=== PATIENT | female | born 1995 | race Caucasian/White ===

== ENCOUNTER 2021-04-30 15:51 | Emergency (ER) | payer BC ==
[~2021-04-30] VITALS: Ht 170.2 cm; Wt 77.1 kg
[2021-04-30 15:53] VITALS: BP 122/59
[2021-04-30] MEDS ORDERED: RABIES VACC, HUMAN DIPLOID/PF 2.5 UNIT ML IM SCH (18:30)
[2021-04-30] MEDS ORDERED: DIPH,PERTUSS(ACELL),TET VAC/PF 0.5 ML VIAL IM ONE (18:30)
[2021-04-30] MEDS ORDERED: AMOX-426 PO (18:57)
[2021-04-30] MEDS ORDERED: MUPI15C TP (18:57)
== END 2021-04-30 20:17 | disposition home or self-care (01) ==
LOC: EDH 16:01
DX: S60.511A Abrasion of right hand, initial encounter (principal); W55.01XA Bitten by cat, initial encounter; Y93.89 Activity, other specified; Y92.89 Other specified places as the place of occurrence of the external cause; Y99.8 Other external cause status
CPT/HCPCS: 90471; 90472; 90675; 90715

== ENCOUNTER 2022-11-05 06:53 | Day surgery (SDC) | payer BC ==
[2022-11-04 09:17] VITALS: BP 121/69
[~2022-11-05] VITALS: Ht 170.2 cm; Wt 85.3 kg
[2022-11-05] VITALS (16 sets, daily range): BP systolic 101–114; BP diastolic 43–69
[~2022-11-05 06:53] MED LIST: 0.9% NACL 500ML IV.SOLN 500 ML IV SCH; MAGNESIUM CARBONATE PO; STRONG IODINE SOLN 14ML BOTTLE ONE; TUMERIC PO; VITC PO; [UNRECOGNIZED DRUG - OTHER] PO; [UNRECOGNIZED DRUG - OTHER] PO; [UNRECOGNIZED DRUG - OTHER] PO
[2022-11-05] MEDS ORDERED: LACTATED RINGERS 1000ML 1,000 ML IV ONE (07:08)
[2022-11-05] MEDS ORDERED: FERRIC SUBSULFATE ML TP SCH (08:30)
[2022-11-05] MEDS ORDERED: MIDAZOLAM HCL 1 MG/ML 2ML VIAL ONE (09:18)
[2022-11-05] MEDS ORDERED: FENTANYL CITRATE PF 50 MCG/1 ML 2ML VIAL ONE (09:20)
[2022-11-05] MEDS ORDERED: LIDOCAINE PF 100MG/5ML (2%) SYRINGE 5ML ONE (09:21)
[2022-11-05] MEDS ORDERED: GLYCOPYRROLATE 1 MG/5 ML SYRINGE ONE (09:21)
[2022-11-05] MEDS ORDERED: ROCURONIUM 10MG/1ML SYR 10 MG/ML ML ONE (09:22)
[2022-11-05] MEDS ORDERED: PROPOFOL 10 MG/ML 20ML VIAL IV ONE (09:22)
[2022-11-05] MEDS ORDERED: ONDANSETRON 4MG INJ ONE (09:32)
[2022-11-05] MEDS ORDERED: LIDOCAINE 1%-EPI 1:100,000 20 ML VIAL IJ ONE (10:00)
[2022-11-05] MEDS ORDERED: NEOSTIGMINE 5MG/5ML SYR IV ONE (10:19)
[2022-11-05] MEDS ORDERED: LIDOCAINE 1%-EPI 1:100,000 20 ML VIAL IJ SCH (10:30)
[2022-11-05] MEDS ORDERED: MEPERIDINE-PF 25 MG/ML SYG ONE (10:51)
== END 2022-11-05 12:15 | disposition home or self-care (01) ==
LOC: DAH 06:53
PROVIDERS: ATTEND Obstetrics & Gynecology
DX: N87.1 Moderate cervical dysplasia (principal); Z20.822 Contact with and (suspected) exposure to COVID-19; K21.9 Gastro-esophageal reflux disease without esophagitis; F41.9 Anxiety disorder, unspecified; F32.A Depression, unspecified; Z82.49 Family history of ischemic heart disease and other diseases of the circulatory system; Z83.3 Family history of diabetes mellitus; Z98.890 Other specified postprocedural states; Z79.899 Other long term (current) drug therapy; Z79.01 Long term (current) use of anticoagulants
CPT/HCPCS: 84703; 87426; 36415; 57520; 81025; A4351; J7120; J3010; J3490 ×3; J2710; J2001; J2250; J2704; J2405; J2175; A4215; A4223; A4222; A4221; A4663

== ENCOUNTER 2023-05-10 18:38 | Emergency (ER) | payer BC ==
[~2023-05-10] VITALS: Ht 170.2 cm; Wt 102.1 kg
[~2023-05-10 18:38] MED LIST changes: -0.9% NACL 500ML IV.SOLN 500 ML IV SCH; -STRONG IODINE SOLN 14ML BOTTLE ONE
[2023-05-10 19:30] LABS: BASOPHILS % (AUTO) 0.5 % (0.0-5.0); EOSINOPHILS % (AUTO) 1.5 % (0.0-8.0); HEMATOCRIT 34.5 % (36-48); LYMPHOCYTES % (AUTO) 22.8 % (21.0-51.0); MEAN CORPUSCULAR HEMOGLOBIN 28.6 pg (27.0-33.0); MEAN CORPUSCULAR VOLUME 86.5 fL (79-99); MONOCYTES % (AUTO) 4.7 % (3.0-13.0); NEUTROPHILS % (AUTO) 69.9 % (40.0-77.0); PLATELET COUNT (AUTO) 248 K/uL (130-400); RED BLOOD CELL COUNT(AUTO) 3.99 MIL/uL (4.00-5.50); RED CELL DISTRIBUTION WIDTH 12.5 % (11.0-15.5); WHITE BLOOD COUNT (AUTO) 10.8 K/uL (4.8-10.8)
[2023-05-10 19:32] LABS: APPEARANCE,URINE CLEAR (CLEAR); BILIRUBIN,URINE NEGATIVE (NEGATIVE); COLOR,URINE LIGHT-YELLOW (YELLOW); GLUCOSE, URINE (UA) NEGATIVE (NEGATIVE); KETONES,URINE NEGATIVE (NEGATIVE); LEUKOCYTE ESTERASE ,URINE NEGATIVE Leu/uL (NEGATIVE); NITRATE,URINE NEGATIVE (NEGATIVE); OCCULT BLOOD,URINE LARGE (NEGATIVE); PROTEIN,URINE 20 mg/dL (NEGATIVE); UROBILINOGEN,URINE 0.2 mg/dL (0.2-1.0)
[2023-05-10 19:36] LABS: HCG,QUALITATIVE URINE POSITIVE (NEGATIVE)
[2023-05-10 19:38] LABS: BACTERIA,URINE RARE /HPF (None Seen); CREATININE 0.8 mg/dL (0.5-1.5); MUCUS,URINE RARE LPF (None Seen); OTHER CASTS, URINE 1 /LPF (None Seen); POTASSIUM 3.7 mmol/L (3.5-5.1); SQUAMOUS EPITHELIAL CELL,UR RARE /HPF (0-2)
[2023-05-10 19:45] LABS: ALBUMIN 3.6 g/dL (3.5-5.0); TOTAL PROTEIN, SERUM 7.1 g/dL (6.0-8.3)
[2023-05-10 22:38] VITALS: BP 125/71
== END 2023-05-10 22:44 | disposition home or self-care (01) ==
LOC: EDH 18:38
DX: O20.0 Threatened abortion (principal); Z3A.08 8 weeks gestation of pregnancy
CPT/HCPCS: 36415; 76801; 80053; 81001; 81025; 84702; 85025; 86900; 86901; 87088

== ENCOUNTER 2024-09-26 22:31 | Inpatient (IN) | payer BC ==
[~2024-09-26] VITALS: Ht 170.2 cm; Wt 115.2 kg
[2024-09-26 22:32] VITALS: BP 175/99; PULSE 74; RESP 20; TEMP 97.9
--- NOTE | 2024-09-26 22:40 | NUR ---
REPORT GIVEN TO JAN AT [facility] PT IN STABLE CONDITION FOR TRANSPORT TO UNIT.
[2024-09-26 23:17] LABS: ADD UA MICROSCOPIC YES; APPEARANCE,URINE CLEAR (CLEAR); BILIRUBIN,URINE NEGATIVE (NEGATIVE); COLOR,URINE LIGHT-YELLOW (YELLOW); GLUCOSE, URINE (UA) NEGATIVE (NEGATIVE); KETONES,URINE NEGATIVE (NEGATIVE); LEUKOCYTE ESTERASE ,URINE NEGATIVE Leu/uL (NEGATIVE); NITRATE,URINE NEGATIVE (NEGATIVE); OCCULT BLOOD,URINE NEGATIVE (NEGATIVE); PROTEIN,URINE 10 mg/dL (NEGATIVE); UROBILINOGEN,URINE 0.2 mg/dL (0.2-1.0)
[2024-09-26 23:18] LABS: BASOPHILS # (AUTO) 0.04 K/uL (0.00-0.20); BASOPHILS % (AUTO) 0.4 % (0.0-5.0); EOSINOPHILS % (AUTO) 1.8 % (0.0-8.0); HEMATOCRIT 34.7 % (36-48); IMMATURE GRANULOCYTE ABSOLUTE 0.07 K/uL (0-1); LYMPHOCYTES # (AUTO) 2.3 K/uL (1.0-4.8); LYMPHOCYTES % (AUTO) 21.3 % (21.0-51.0); MEAN CORPUSCULAR HEMOGLOBIN 29.8 pg (27.0-33.0); MEAN CORPUSCULAR HGB CONC 33.4 g/dL (32.0-36.0); MEAN CORPUSCULAR VOLUME 89.2 fL (79-99); MONOCYTES # (AUTO) 0.5 K/uL (0.1-1.0); MONOCYTES % (AUTO) 4.7 % (3.0-13.0); NEUTROPHILS # (AUTO) 7.8 K/uL (1.8-7.7); NEUTROPHILS % (AUTO) 71.2 % (40.0-77.0); PLATELET COUNT (AUTO) 192 K/uL (130-400); RED BLOOD CELL COUNT(AUTO) 3.89 MIL/uL (4.00-5.50); RED CELL DISTRIBUTION WIDTH 13.5 % (11.0-15.5)
[2024-09-26 23:19] LABS: BACTERIA,URINE RARE /HPF (None Seen); MUCUS,URINE RARE LPF (None Seen); RBC,URINE 0-1 /HPF (0-1); SQUAMOUS EPITHELIAL CELL,UR RARE /HPF (0-2); WBC,URINE 0-1 /HPF (0-1)
[2024-09-26 23:24] LABS: AMPHET/METH SCREEN,URINE NEGATIVE (NEGATIVE); BARBITURATE SCREEN, URINE NEGATIVE (NEGATIVE); BENZODIAZEPINES SCREEN,URINE NEGATIVE (NEGATIVE); CANNABINOID SCREEN,URINE NEGATIVE (NEGATIVE); COCAINE SCREEN,URINE NEGATIVE (NEGATIVE); OPIATE SCREEN,URINE NEGATIVE (NEGATIVE); PHENCYCLIDINE SCREEN,URINE NEGATIVE (NEGATIVE)
[2024-09-26 23:29] LABS: INR <= 0.93 (0.85-1.15); PROTHROMBIN TIME 9.9 SEC (9.6-11.6)
[2024-09-26] MEDS ORDERED: LAbetaLOL 20MG VIAL ONE (23:29)
[2024-09-26 23:30] LABS: PARTIAL THROMBOPLASTIN TIME 26.1 SEC (26.3-35.5)
[2024-09-26 23:32] LABS: CREATININE 0.7 mg/dL (0.5-1.0); POTASSIUM 4.2 mmol/L (3.5-5.1)
[2024-09-26 23:34] LABS: FIBRINOGEN 436 mg/dL (180-350)
[2024-09-26 23:36] LABS: ALBUMIN 2.5 g/dL (3.5-5.0); BILIRUBIN,TOTAL 0.3 mg/dL (0.2-1.0); TOTAL PROTEIN, SERUM 6.3 g/dL (6.0-8.3); URIC ACID 5.8 mg/dL (2.6-7.2)
[2024-09-26] MEDS ORDERED: MAGNESIUM SULFATE 40 GM/1000 ML IV ONE (23:57)
[2024-09-27] MEDS ORDERED: CALCIUM GLUC 1GM/10ML VIAL IV PRN
[2024-09-27] MEDS ORDERED: MAGNESIUM 4GM PREMIX 100ML 100 ML IV PRN
[2024-09-27] MEDS ORDERED: MAGNESIUM SULFATE 40GM/1000ML 1,000 ML IV PRN
[2024-09-27] MEDS ORDERED: LACTATED RINGERS 1000ML 1,000 ML IV SCH
[2024-09-27] MEDS: MAGNESIUM 4GM PREMIX 100ML 100 ML IV ONE (00:01)
[2024-09-27] MEDS ORDERED: acetaMINOPHEN 500 MG TABLET PO PRN (00:30)
[2024-09-27] MEDS ORDERED: LAbetaLOL 20MG VIAL IV PRN (00:30)
[2024-09-27 00:57] LABS: HIV 1&2 ANTIBODY Non-Reactive (Negative)
[2024-09-27 00:58] LABS: HIV-1 p24 Antigen Non-Reactive (Negative)
[2024-09-27 17:39] LABS: RAPID PLASMA REAGIN NONREACTIVE (NONREACTIVE)
== END 2024-09-27 01:00 | disposition left against medical advice (07) | DRG 833 ==
LOC: EDH 22:31 → OBSVTOIN 22:32 → LDH 22:32
PROVIDERS: ADMIT Obstetrics & Gynecology; ATTEND Obstetrics & Gynecology
DX: O26.892 Other specified pregnancy related conditions, second trimester (principal); Z3A.20 20 weeks gestation of pregnancy
CPT/HCPCS: 36415; 80053; 80305; 81001; 84550; 85025; 85384; 85610; 85730; 86592; 86701; 86850; 86900; 86901; 87340; 87390; 96360; G0378; J3475; J3490

== ENCOUNTER 2024-09-30 21:29 | Observation (INO) | payer BC ==
[~2024-09-30] VITALS: Ht 170.2 cm; Wt 107.0 kg
[2024-09-30 21:54] LABS: BASOPHILS # (AUTO) 0.05 K/uL (0.00-0.20); BASOPHILS % (AUTO) 0.4 % (0.0-5.0); EOSINOPHILS # (AUTO) 0.35 K/uL (0.00-0.70); EOSINOPHILS % (AUTO) 2.9 % (0.0-8.0); HEMATOCRIT 28.3 % (36-48); IMMATURE GRANULOCYTE ABSOLUTE 0.08 K/uL (0-1); LYMPHOCYTES # (AUTO) 1.9 K/uL (1.0-4.8); LYMPHOCYTES % (AUTO) 15.6 % (21.0-51.0); MEAN CORPUSCULAR HEMOGLOBIN 29.4 pg (27.0-33.0); MEAN CORPUSCULAR HGB CONC 33.9 g/dL (32.0-36.0); MEAN CORPUSCULAR VOLUME 86.8 fL (79-99); MONOCYTES # (AUTO) 0.6 K/uL (0.1-1.0); MONOCYTES % (AUTO) 5.3 % (3.0-13.0); NEUTROPHILS # (AUTO) 9.1 K/uL (1.8-7.7); NEUTROPHILS % (AUTO) 75.1 % (40.0-77.0); PLATELET COUNT (AUTO) 160 K/uL (130-400); RED BLOOD CELL COUNT(AUTO) 3.26 MIL/uL (4.00-5.50); RED CELL DISTRIBUTION WIDTH 13.7 % (11.0-15.5); WHITE BLOOD COUNT (AUTO) 12.1 K/uL (4.8-10.8)
[2024-09-30 22:04] LABS: CREATININE 0.7 mg/dL (0.5-1.0)
[2024-09-30 22:07] LABS: INR <= 0.93 (0.85-1.15); PROTHROMBIN TIME 9.8 SEC (9.6-11.6)
[2024-09-30 22:08] LABS: PARTIAL THROMBOPLASTIN TIME 27.3 SEC (26.3-35.5)
[2024-09-30 22:15] LABS: B-TYPE NATRIURETIC PEPTIDE 84 pg/mL (0-100)
--- NOTE | 2024-09-30 22:35 | ERN ---
ED Note History of Present Illness Stated Complaint: SOB,HIGH BP,SWOLLEN FEET/LEGS,PREECLAMPSIA Chief Complaint: Post-Op Problem Time Seen by MD: 21:41 Dictation: History of present illness: 29-year-old female who had underwent section at 35 weeks of gestation on September 27, 2024 possibly due to preeclampsia presented to ED with complaints of sudden onset of shortness of breaths since today afternoon. As per the patient she had uneventful but developed headache and increased BP on September 26, which was why she was induced-failed induction- had a section. She also noticed increase in bilateral lower extremity swelling for past 1 day. She also reports chest tightness and silver spots in front of eyes. No nausea, no headache, no vom iting, no chest pain, no abdominal tenderness, no stitch site tenderness reported. Patient denies any signs and symptoms of depression although she acknowledges she is anxious about being a new mother. She also denies any increase in lochia. At the time of presentation to ER, her temperature was 99.2, blood pressure was 180/111, pulse rate was 84 per minute, SpO2 of 100% on room air. Allergies: Coded Allergies: No Known Allergies (Unverified Allergy, Unknown, 04/30/21) Home Meds Reported Medications [Magnesium Carbonate] No Conflict Check, 580 MG PO HS PRN for SLEEP 11/04/22 [Black Elderber] 2000MG No Conflict Check, 2 TAB PO DAILY 11/04/22 [Tumeric/Vitc/Black] No Conflict Check, 2 TAB PO DAILY 11/04/22 [Bloodbuilder Megafoo] No Conflict Check, 1 TAB PO DAILY 11/04/22 Past Medical History Past Medical History: No Pertinent History Surgical History: Family History: Negative Social History: Negative : 2 Para: 1 Aborts: 1 RN Note Reviewed/Agreed w/PFSH: Yes Review of System Dictation REVIEW OF SYSTEMS COMPLAINS OF CHEST TIGHTNESS, SHORTNESS OF BREATH, BILATERAL LOWER EXTREMITY SWELLING CONSTITUTIONAL: DENIES FEVERS, CHILLS, OR NIGHT SWEATS. NO UNINTENTIONAL WEIGHT LOSS REPORTED. ENT: NO HEARING LOSS, OTALGIA, OTORRHEA, RHINITIS, RHINORRHEA, HOARSENESS, OR SORE THROAT. CARDIOVASCULAR: DENIES ANY EXERTIONAL ANGINA, DYSPNEA ON EXERTION, ORTHOPNEA, PAROXYSMAL NOCTURNAL DYSPNEA, PALPITATIONS CLAUDICATION. PULMONARY: DENIES ANY SHORTNESS OF BREATH, COUGH, PHLEGM / SPUTUM, HEMOPTYSIS, PLEURITIC CHEST PAIN. SLEEP: DENIES MORNING HEADACHES, DAYTIME SOMNOLENCE OR NAPPING. DENIES DIFFICULTY FALLING ASLEEP, STAYING ASLEEP, WAKING FROM SLEEP. DENIES KNOWLEDGE OF SNORING. GASTROINTESTINAL: DENIES ANY TYPE OF DYSPHAGIA TO EITHER LIQUIDS OR SOLIDS. DENIES NAUSEA, VOMITING, ABDOMINAL PAIN, DIARRHEA, CONSTIPATION, BLOOD IN STOOLS . NEUROLOGICAL: DENIES HEADACHE, MOTOR WEAKNESS, SENSORY DEFICIT, VERTIGO / SPINNING SENSATION, GAIT ABNORMALITIES, OR TREMORS. GENITOURINARY: DENIES FREQUENCY, URGENCY, NOCTURIA, HEMATURIA OR INCONTINENCE, LOW URINARY STREAM, STRAINING TO VOID, URINARY INTERMITTENCY OR HESITANCY ENDOCRINOLOGY: DENIES POLYURIA, POLYDIPSIA, POLYPHAGIA OR HEAT / COLD INTOLERANCE. HEMATOLOGY: DENIES THROMBOPHILIA / PREVIOUS CLOTS, OR COAGULOPATHY / BLEEDING DISORDERS. ONCOLOGIC: DENIES PERSONAL HISTORY OF MALIGNANCY. DERMATOLOGIC: DENIES RASHES OR PRURITUS. PSYCHIATRIC: DENIES ANY SUICIDAL OR HOMICIDAL IDEATION. DENIES HALLUCINATIONS. Initial Vital Sign VS Vital Signs Date Time Temp Pulse Resp B/P (MAP) Pulse Ox O2 Delivery O2 Flow Rate FiO2 09/30/24 21:30 99.1 84 16 189/102 99 Room Air 09/30/24 22:19 0 21 Physical Exam Dictation PHYSICAL EXAM GENERAL APPEARANCE: Obese . Awake and alert. Oriented to time, place and person. No acute cardiopulmonary distress. HEENT: Head normocephalic , atraumatic. Sclera anicteric . Pupils are round and reactive. Extraocular movements intact . No conjunctival injection. No nasal congestion. No throat congestion .Oral mucosa moist. NECK: Supple. No JVD. No thyromegaly. No submental, submandibular, pre- /postauricular, occipital or supraclavicular lymphadenopathy. No carotid bruits. LUNGS: Scattered crackles CARDIOVASCULAR: Regular rate and rhythm. S1 and S2 normal. No rubs, murmurs or gallops. ABDOMEN: Soft, nontender, and nondistended. There is no rebound tenderness, voluntary guarding, or rigidity. No hepatosplenomegaly. Bowel sounds normal in all four quadrants . Healthy caesarian section stitch wound. NEUROLOGICAL: Cranial nerves II-XII grossly intact. Motor is 5/5 in bilateral upper and lower extremities . No sensory deficits. EXTREMITIES: Bilateral lower extremity edema, No cyanosis , No clubbing. Good capillary refill. SKIN: No skin breakdown. No rashes or lesions . PSYCHIATRY: Normal affect .No auditory or visual hallucinations. Normal speech. No dysarthria. Results (Laboratory/Radiology) Laboratory/Radiology Laboratory Tests Test 09/30/24 21:47 09/30/24 22:07 09/30/24 23:32 White Blood Count 12.1 K/uL (4.8-10.8) H Red Blood Count 3.26 MIL/uL (4.00-5.50) L Hemoglobin 9.6 g/dL (12.0-16.0) L Hematocrit 28.3 % (36-48) L Mean Corpuscular Volume 86.8 fL (79-99) Mean Corpuscular Hemoglobin 29.4 pg (27.0-33.0) Mean Corpuscular Hemoglobin Concent 33.9 g/dL (32.0-36.0) Red Cell Distribution Width 13.7 % (11.0-15.5) Platelet Count 160 K/uL (130-400) Mean Platelet Volume 12.1 fL (7.5-10.5) H Immature Granulocyte % (Auto) 0.7 % (0-1) Neutrophils (%) (Auto) 75.1 % (40.0-77.0) Lymphocytes (%) (Auto) 15.6 % (21.0-51.0) L Monocytes (%) (Auto) 5.3 % (3.0-13.0) Eosinophils (%) (Auto) 2.9 % (0.0-8.0) Basophils (%) (Auto) 0.4 % (0.0-5.0) Neutrophils # (Auto) 9.1 K/uL (1.8-7.7) H Lymphocytes # (Auto) 1.9 K/uL (1.0-4.8) Monocytes # (Auto) 0.6 K/uL (0.1-1.0) Eosinophils # (Auto) 0.35 K/uL (0.00-0.70) Basophils # (Auto) 0.05 K/uL (0.00-0.20) Absolute Immature Granulocyte (auto 0.08 K/uL (0-1) Nucleated Red Blood Cells 0.0 % (0.0-0.19) Prothrombin Time 9.8 SEC (9.6-11.6) Prothromb Time International Ratio <= 0.93 (0.85-1.15) Activated Partial Thromboplast Time 27.3 SEC (26.3-35.5) Sodium Level 136 mmol/L (136-145) Potassium Level 4.0 mmol/L (3.5-5.1) Chloride Level 102 mmol/L (101-111) Carbon Dioxide Level 27 mmol/L (21-32) Blood Urea Nitrogen 11 mg/dL (7-18) Creatinine 0.7 mg/dL (0.5-1.0) Glomerular Filtration Rate Calc 119 mL/min (>90) Random Glucose 87 mg/dL (70-105) Total Calcium 8.7 mg/dL (8.5-10.1) Total Creatine Kinase 86 U/L (21-232) Troponin I High Sensitivity 10 ng/L (4-50) B-Type Natriuretic Peptide 84 pg/mL (0-100) Troponin I < 0.05 ng/mL (0.00-0.05) Urine Color YELLOW (YELLOW) Urine Appearance CLEAR (CLEAR) Urine pH 6.0 (5.0-8.0) Urine Specific [place] 1.008 (1.001-1.031) Urine Protein NEGATIVE mg/dL (NEGATIVE) Urine Glucose (UA) NEGATIVE mg/dL (NEGATIVE) Urine Ketones NEGATIVE mg/dL (NEGATIVE) Urine Occult Blood MODERATE (NEGATIVE) H Urine Nitrate NEGATIVE (NEGATIVE) Urine Bilirubin NEGATIVE mg/dL (NEGATIVE) Urine Urobilinogen 0.2 mg/dL (0.2-1.0) Urine Leukocyte Esterase NEGATIVE [place]/uL Urine RBC 6-10 /HPF (0-1) H Urine WBC 2-5 /HPF (0-1) H Urine Squamous Epithelial Cells RARE /HPF (0-2) Urine Bacteria None /HPF (None Seen) Labs Reviewed?: Yes ED Course ED Course Orders Procedure Category Date Status Time Vital Signs Per CPOE 09/30/24 Transmitted Routine 21:40 B-Type Natriuretic LAB 09/30/24 Complete Peptide 21:40 Chest 1vw RAD 09/30/24 Resulted 21:40 12 Lead Ekg Tracing- EKG 09/30/24 Logged Technical 21:40 Oxygen By Nc/Pulse Ox CPOE 09/30/24 Transmitted 21:40 Maintain Iv CPOE 09/30/24 Transmitted 21:40 Iv Insertion CPOE 09/30/24 Transmitted 21:40 Cardiac Monitoring CPOE 09/30/24 Transmitted 21:40 Pulse Oximetry With CPOE 09/30/24 Transmitted Vs And Prn 21:40 Cbc With Differential LAB 09/30/24 Complete 21:40 Activity: Br W/Brp CPOE 09/30/24 Transmitted With Assist 21:40 Creatine Kinase, Total LAB 09/30/24 Complete 21:40 Urinalysis Profile LAB 09/30/24 Complete 21:40 Troponin Poc Order LAB 09/30/24 Complete Only 21:40 Bedside Troponin-I LAB.ER 09/30/24 In Process (Poc) 21:40 Basic Metabolic Panel LAB 09/30/24 Complete 21:40 Pt And Ptt LAB 09/30/24 Complete 21:40 Troponin I High LAB 09/30/24 Complete Sensitivity 21:40 Hydralazine 20mg Inj PHA 09/30/24 Complete (Apresoline 20mg In 22:00 Furosemide 20mg Vial PHA 10/01/24 Complete (Lasix 20mg Vial) 00:30 Current Medications Medications (Trade) Dose Ordered Sig/Fartun Route PRN Reason Start Time Stop Time Status Last Admin Dose Admin Furosemide (LASix 20MG VIAL) 20 mg ONCE ONCE IV 10/01/24 00:30 10/01/24 00:31 DC 10/01/24 00:31 Hydralazine HCl (APRESOLine 20MG INJ) 20 mg ONCE ONCE IV 09/30/24 22:00 09/30/24 22:01 DC 09/30/24 23:21 Vital Signs Date Time Temp Pulse Resp B/P (MAP) Pulse Ox O2 Delivery O2 Flow Rate FiO2 10/01/24 00:25 92 16 149/89 98 Room Air* 0 09/30/24 23:19 88 16 152/88 98 Room Air* 0 09/30/24 22:19 71 16 164/86 98 Room Air* 0 09/30/24 21:30 99.1 84 16 189/102 99 Room Air We will perform diagnostic labs, imaging and administer medications according to the patient's complaint. Once the results are available, will review and personally interpreted the labs to rule out any acute life-threatening emergency the trach require immediate intervention and treatment. I will then re-evaluate the patient after treatment and diagnostic exams have return to determine whether the patient requires any further testing, can safely be discharged home or need further admission to hospital for additional treatment and evaluation. Labs reviewed BNP 7 is within normal limits CBC showed a hemoglobin of 9.6 chest x-ray was unremarkable for any acute infiltrates. Antihypertensives were used and she responded very well blood pressure improved significantly to 149/89. She has been observed in the ER for more than 4 hours . 1:39 a.m.-clinically improved feels better. She is medically cleared from my standpoint to be evaluated by Ob team HEART Score Response (Comments) Value History: Low suspicion (0) 0 EKG: Normal 0 Age: < 45yrs (0) 0 Risk Factors: No known risk factors (0) 0 Initial Troponin: Normal limit (0) 0 HEART Score Risk: Low Risk for MACE (1-3) Total 0 Medical Decision Making MDM Differential diagnosis : Anxiety, acute pulmonary edema, cardiomyopathy, atelectasis, pulmonary embolus Rationale: Tests considered and ordered secondary to shared decision making include: I will re-evaluate the patient after treatment and diagnostic exams have returned to determine whether they require further testing, can be safely discharged home, or need admission for further treatment and evaluation. Given the social determinants of health affecting care, including literacy, access to medical care, prescription drug management, and [id number] drugs, I will ensure that treatment plans are tailored accordingly. There are no social concerns with this patient. Risk of complication and/or morbidity or mortality of patient management: None Need for hospitalization: Patient does not meet criteria for hospitalization. Need for emergency major/minor surgery: No Prescription drug management Prescriptions will include symptomatic care Medications-Per medication reconciliation Previous outside records reviewed: Old ER visits. Patient's prior external medical records from other ER visits were reviewed by me as indicated. Prior testing and results from previous visits were reviewed. Prior tests were taken into account with medical decision making and resource utilization, independent historian/historians were used to obtain complete medical history. I independently interpreted the test that were performed, results were reviewed by me and considered findings on radiology. Medical management and examination interpretation discussions was done by me with other qualified healthcare professionals as indicated for the patient's care. Revaluation: Her blood pressure dropped to 152/88 mmHg after 10 mg of IV hydralazine. Her vitals are stable. Her labs showed WBC [id number] , hemoglobin 9.6, normal BNP, normal bmp, normal troponins and normal EKG. Disposition : Discharge home to follow-up with [facility] Problem List Problem List: (1) eclampsia (2) Hypertensive emergency (3) Volume overload (4) anemia DX & DISP Disposition: Transfer Departure Impression: Primary Impression: eclampsia Additional Impressions: Hypertensive emergency without congestive heart failure, Volume overload Condition: Stable Additional Instructions: Patient is medically cleared for transfer to OB services for care Referrals: BRANDON GROVER MD (PCP) ATTESTATION BY PHYSICIAN I have seen and examined the patient. I reviewed the documentation, medical decision making, and treatment plan as noted by the resident provider above. I agree with the findings and plan of care. CONCHA KAHN MD, ANCHU A MD Sep 30, 2024 22:35 CONCHA KAHN MD Oct 01, 2024 01:43
[2024-09-30] MEDS: hydrALAZine 20MG/ML VIAL IV ONE (23:21)
[2024-09-30 23:41] LABS: APPEARANCE,URINE CLEAR (CLEAR); BILIRUBIN,URINE NEGATIVE (NEGATIVE); GLUCOSE, URINE (UA) NEGATIVE (NEGATIVE); KETONES,URINE NEGATIVE (NEGATIVE); LEUKOCYTE ESTERASE ,URINE NEGATIVE Leu/uL (NEGATIVE); NITRATE,URINE NEGATIVE (NEGATIVE); OCCULT BLOOD,URINE MODERATE (NEGATIVE); PROTEIN,URINE NEGATIVE (NEGATIVE); UROBILINOGEN,URINE 0.2 mg/dL (0.2-1.0)
[2024-09-30 23:43] LABS: ADD UA MICROSCOPIC YES; COLOR,URINE YELLOW (YELLOW)
[2024-09-30 23:45] LABS: SQUAMOUS EPITHELIAL CELL,UR RARE /HPF (0-2)
[2024-10-01] VITALS (21 sets, daily range): BP systolic 142–188; BP diastolic 68–99; PULSE 77–106; RESP 20; TEMP 98.5–99.3; O2SAT 98
--- NOTE | 2024-10-01 00:17 | HMCIMG ---
CHEST 1VW HISTORY: Chest pain COMPARISON: None FINDINGS: A frontal projection of the chest was obtained. No acute pulmonary infiltrates is seen. The heart is normal in size. Prominent interstitial markings are seen. No evidence of aortic calcification is seen. IMPRESSION: 1. No acute pulmonary infiltrate is seen.
[2024-10-01] MEDS: furoSEMIDE 20MG VIAL IV ONE (00:31)
[2024-10-01] MEDS: hydrALAZine 20MG/ML VIAL IV ONE ×2 (03:11→20:22)
[2024-10-01] MEDS: LAbetaLOL HCL 100 MG TABLET PO SCH (07:15)
[2024-10-01] MEDS: acetaMINOPHEN 500 MG TABLET PO PRN (07:58)
[2024-10-01] MEDS ORDERED: doCUSate SODIUM 100 MG CAP PO ONE (09:00)
--- NOTE | 2024-10-01 15:09 | EKG ---
[facility] Test Date: 2024-09-30 Test Time: 21:35:48 Pat Name: BHARATI JACKSON Department: [facility] Room: [place] [address] Gender: F [employer]: [id number] : 1995 Requested By: CONCHA KAHN Order Number: [id number] Reading MD: Fredrick Barrett Measurements Intervals [place] Rate: 73 P: 61 NM: 117 QRS: 75 QRSD: 84 T: 56 QT: 375 QTc: 412 Interpretive Statements Sinus rhythm RSR' IN V1 OR V2, PROBABLY NORMAL VARIANT No previous ECG available for comparison Electronically Signed On 10-01-2024 17:36:54 [employer]RE [employer]ION CAPTAIN by Fredrick Barrett Please click the below link to view image of tracing.
[2024-10-01] MEDS ORDERED: hydrALAZine 20MG/ML VIAL ONE (20:18)
[2024-10-02] VITALS (11 sets, daily range): BP systolic 136–156; BP diastolic 73–86; PULSE 74–97; RESP 19–20; TEMP 98.2–99.3
[2024-10-02] MEDS: LAbetaLOL HCL 100 MG TABLET PO ONE (09:40)
[2024-10-02] MEDS: ibuPROFEN 800 MG TAB PO PRN (12:31)
== END 2024-10-02 18:42 | disposition home or self-care (01) ==
LOC: EDH 21:29 → LDH 10-01 02:13
PROVIDERS: ADMIT Obstetrics & Gynecology; ATTEND Obstetrics & Gynecology
DX: O15.2 Eclampsia complicating the puerperium (principal); O90.81 Anemia of the puerperium; O61.9 Failed induction of labor, unspecified; O99.53 Diseases of the respiratory system complicating the puerperium; R06.02 Shortness of breath; R07.89 Other chest pain; I16.1 Hypertensive emergency; R51.9 Headache, unspecified; E87.70 Fluid overload, unspecified; Z37.0 Single live birth
CPT/HCPCS: 96374; 99285; 82550; 84484 ×2; 80048; 83880; 85025; 85610; 85730; 81001; 36415; 71045; 93005; 96376; 96375; J0360 ×3; G0378 ×4; J1940